=== PATIENT | male | born 1995 | race African-American/Black ===

== ENCOUNTER 2017-10-19 13:30 | Emergency (ER) | payer OTHER, SELFPAY ==
[2017-10-19] MEDS ORDERED: Lidocaine 1% 20 ML MDV ONE (15:05)
--- NOTE | 2017-10-19 15:15 | RAD ---
LEFT THUMB TWO VIEWS: History: Laceration. FINDINGS: There is evidence of injury to the distal soft tissues. No radiopaque foreign body. No fracture. No cortical irregularity. Joint spaces are preserved. IMPRESSION: No fracture. POS: [facility]
[2017-10-19] MEDS ORDERED: Adacel (T-DAP) 0.5 ML VIAL ONE (16:06)
== END 2017-10-19 16:20 | disposition home or self-care (01) ==
LOC: NAV ERS 13:30
DX: S61.012A Laceration without foreign body of left thumb without damage to nail, initial encounter (principal); Z23 Encounter for immunization; W45.8XXA Other foreign body or object entering through skin, initial encounter
CPT/HCPCS: 12001; 90471; 90715; 99001; J2001

== ENCOUNTER 2017-10-26 13:10 | Emergency (ER) | payer OTHER, SELFPAY ==
[2017-10-26] MEDS ORDERED: Triple Antibiotic Oint 1 GM Packet ONE (13:42)
== END 2017-10-26 13:55 | disposition home or self-care (01) ==
LOC: NAV ERS 13:10
DX: T81.4XXA Infection following a procedure, initial encounter (principal); S61.012D Laceration without foreign body of left thumb without damage to nail, subsequent encounter
CPT/HCPCS: 99282

== ENCOUNTER 2017-10-31 11:43 | Emergency (ER) | payer SELFPAY | END 2017-10-31 12:25 | disposition home or self-care (01) | LOC: NAV ERS 11:43 | DX: Z48.817 Encounter for surgical aftercare following surgery on the skin and subcutaneous tissue (principal); Z79.891 Long term (current) use of opiate analgesic | CPT/HCPCS: 99282 ==

== ENCOUNTER 2018-03-14 08:31 | Emergency (ER) | payer OTHER, SELFPAY ==
--- NOTE | 2018-03-14 09:30 | RAD ---
TWO VIEWS OF THE CHEST: DATE: 03/14/18. HISTORY: Left-sided chest pain, pain with movement and deep breathing. FINDINGS: There is no pneumothorax, pleural fluid, focal consolidation, or alveolar edema. Heart and mediastin al contours are unremarkable. IMPRESSION: No acute findings. POS: [facility]
[2018-03-14 09:35] LABS: #Lymphocytes 1.4 thou/uL (1.20-3.40); #Monocytes 0.3 thou/uL (0.11-0.59); #Neutrophils 1.5 thou/uL (1.40-6.50); %Basophils 1.3 % (0.0-1.0); %Eosinophils 0.4 % (0.0-10.0); %Lymphocytes 43.5 % (21.0-51.0); %Monocytes 8.6 % (0.0-10.0); %Neutrophils 46.2 % (42.0-75.0); Hemoglobin 15.3 g/dL (14.0-18.0); Mean Corpuscular HGB CONC 32.8 g/dL (32.0-36.0); Mean Corpuscular Hemoglobin 29.1 pg (27.0-31.0); Mean Corpuscular Volume 88.7 fl (80.0-94.0); Mean Platelet Volume 10.7 fL (7.4-10.4); Platelet Count 200 thou/uL (130-400); RBC Distribution Width 10.9 % (11.5-14.5); Red Blood Cell (RBC) Count 5.25 mill/uL (4.70-6.10); White Blood Cell (WBC) Count 3.2 thou/uL (4.8-10.8)
[2018-03-14 09:49] LABS: ALT (SGPT) 15 U/L (8-55); AST (SGOT) 20 U/L (5-34); Albumin 4.4 g/dL (3.5-5.0); Alkaline Phosphatase 51 U/L (40-150); Anion Gap 13 mmol/L (10-20); BUN (Urea Nitrogen) 18 mg/dL (8.9-20.6); Bilirubin, Total 0.9 mg/dL (0.2-1.2); CK (CPK) 216 U/L (30-200); Calc. Creatinine Clearance 0 mL/min (70-130); Calcium 9.1 mg/dL (7.8-10.44); Carbon Dioxide 25 mmol/L (22-29); Chloride 107 mmol/L (98-107); Estimated GFR-MDRD Greater than 90; Globulin 2.6 g/dL (2.4-3.5); Glucose 100 mg/dL (70-105); Potassium 3.9 mmol/L (3.5-5.1); Sodium 141 mmol/L (136-145)
[2018-03-14 09:50] LABS: CKMB 1.6 ng/mL (0-6.6)
== END 2018-03-14 10:03 | disposition home or self-care (01) ==
LOC: NAV ERS 08:31
DX: M94.0 Chondrocostal junction syndrome [Tietze] (principal)
CPT/HCPCS: 71046; 80053; 82553; 84484; 85025; 85379; 93005; 94760

== ENCOUNTER 2022-04-30 05:42 | Emergency (ER) | payer BC | END 2022-04-30 06:35 | disposition home or self-care (01) | LOC: NAV ERS 05:42 | DX: B37.0 Candidal stomatitis (principal); F17.210 Nicotine dependence, cigarettes, uncomplicated | CPT/HCPCS: 87081; 87430; 99283 ==

== ENCOUNTER 2023-05-22 20:04 | Emergency (ER) | payer BC ==
[2023-05-22] MEDS ORDERED: Dexamethasone 4 MG TAB ONE (20:20)
== END 2023-05-22 21:03 | disposition home or self-care (01) ==
LOC: NAV ERS 20:04
DX: J10.1 Influenza due to other identified influenza virus with other respiratory manifestations (principal); F17.210 Nicotine dependence, cigarettes, uncomplicated
CPT/HCPCS: 87081; 87430; 87804; 99283; J8540